=== PATIENT | female | born 1955 | race Caucasian/White ===

== ENCOUNTER → 2017-12-20 | Outpatient (CLI) | payer OTHER | LOC: CFH 16:14 | PROVIDERS: ATTEND Internal Medicine | DX: M17.12 Unilateral primary osteoarthritis, left knee (principal) ==

== ENCOUNTER 2021-05-08 12:30 | Emergency (ER) | payer MEDICARE, OTHER ==
[~2021-05-08] VITALS: Ht 149.9 cm; Wt 79.3 kg
[~2021-05-08 12:30] MED LIST: ALPR0.254 PO; LEVO5TAB29 PO; LISI-170 PO; METF850T10 PO; ZIPR80CA3 PO
--- NOTE | 2021-05-08 12:55 | NUR ---
PATIENT WALKED BACK FROM TRIAGE WITH CHIEF C/O "I THINK I HAVE THAT COVID-19." PATIENT REPORTS COUGH, FEVER AND LOSS OF TASTE AND SMELL X1 WEEK. NADN, CONNECTED TO MONITOR, VSS, CALL LIGHT WITHIN REACH.
--- NOTE | 2021-05-08 13:03 | NUR ---
ERMD AT BEDSIDE FOR EVALUATION.
[2021-05-08] MEDS ORDERED: IBUPROFEN 200 MG TABLET ONE (13:14)
[2021-05-08] MEDS ORDERED: IBUPROFEN 200 MG TABLET PO ONE (13:30)
[2021-05-08 13:36] LABS: BASOPHILS % (AUTO) 1 % (0-1); EOSINOPHILS % (AUTO) 0 % (1-7); LYMPHOCYTES % (AUTO) 18 % (22-44); MEAN CORPUSCULAR HEMOGLOBIN 31.9 pg (27.0-34.8); MEAN CORPUSCULAR HGB CONC 33.8 g/dL (32.4-35.8); MONOCYTES % (AUTO) 11 % (2-9); NEUTROPHILS % (AUTO) 70 % (42-75); PLATELET COUNT 219 x10^3/uL (130-400); RED BLOOD COUNT 3.55 x10^6/uL (3.82-5.3); RED CELL DISTRIBUTION WIDTH 13.3 % (9.6-15.2)
[2021-05-08 13:42] LABS: ALANINE AMINOTRANSFERASE 30 U/L (12-78); ALBUMIN 2.9 g/dL (3.4-5.0); ANION GAP 8 mmol/L (5-15); CALCIUM 8.5 mg/dL (8.5-10.1); CHLORIDE 113 mmol/L (98-107); CREATININE 1.18 mg/dL (0.55-1.02)
[2021-05-08 13:44] LABS: ALKALINE PHOSPHATASE 73 U/L (45-117); BILIRUBIN,TOTAL 0.3 mg/dL (0.2-1.0); TOTAL PROTEIN 6.9 g/dL (6.4-8.2)
[2021-05-08] MEDS ORDERED: AZITHROMYCIN 500 MG in SODIUM CHLORIDE 0.9% 250 ML IV ONE (14:00)
[2021-05-08] MEDS ORDERED: DEXAMETHASONE 4 MG/ML, 1ML IVPush ONE (14:00)
[2021-05-08] MEDS ORDERED: CEFTRIAXONE 1,000 MG in DEXTROSE 5% 50 ML IVPB ONE (14:00)
[2021-05-08] MEDS ORDERED: DEXAMETHASONE 4 MG/ML, 1ML ONE (14:16)
[2021-05-08] MEDS ORDERED: CASIRIVIMAB 600 MG, IMDEVIMAB (REGN10987) 600 MG in SODIUM CHLORIDE 0.9% 250 ML IVPB ONE (14:30)
[2021-05-08] MEDS ORDERED: FILTER 0.22 MICRON IV ONE (14:30)
--- NOTE | 2021-05-08 15:33 | NUR ---
PATIENT RESTING IN [facility], CONNECTED TO MONITOR, VSS, CALL LIGHT WITHIN REACH, NO FURTHER NEEDS AT THIS TIME. PATIENT TO BE DISCHARGED AFTER ABX FINISH RUNNING.
[2021-05-08 15:47] VITALS: BP 124/85
--- NOTE | 2021-05-08 16:43 | NUR ---
PATIENT RESTING IN [facility], CONNECTED TO MONITOR, VSS. ZITHROMAX STILL RUNNING, ABOUT 20 MINUTES LEFT. PATIENT TO BE DISCHARGED AFTER ABX DONE.
--- NOTE | 2021-05-08 17:18 | NUR ---
IV removed with tip intact. Patient given discharge instructions and prescription and they have confirmed that they understand the instructions. Patient ambulatory with steady gait. NAD, all questions answered appropriately, denies additional needs at this time. No personal belongings left in room after discharge.
== END 2021-05-08 17:19 | disposition home or self-care (01) ==
LOC: ED 17:15
DX: U07.1 COVID-19 (principal); J12.82 Pneumonia due to coronavirus disease 2019; R50.9 Fever, unspecified; I10 Essential (primary) hypertension; E11.9 Type 2 diabetes mellitus without complications
CPT/HCPCS: 36415; 71045; 80053; 85025; 87635; 96365; 96366; 96368; 96375; 99285; J0456; J0696; J1100; J7050; M0243